=== PATIENT | male | born 1995 | race Caucasian/White ===

== ENCOUNTER 2017-11-22 18:43 | Observation (INO) | payer BC, OTHER ==
[~2017-11-22 18:43] MED LIST: IBUP1TAB7 PO
[2017-11-22 18:44] VITALS: BP 152/71; PULSE 85; RESP 20; TEMP 97.9; O2SAT 98
[2017-11-22 19:52] LABS: AUTOMATED NEUTROPHIL # 10.2 TH/MM3 (1.8-7.7); BASOPHIL % 0.1 % (0.0-2.0); HEMATOCRIT 45.4 % (39.0-51.0); LYMPH % 4.9 % (9.0-44.0); LYMPHOCYTE # 0.6 TH/MM3 (1.0-4.8); MEAN CELL VOLUME 87.9 FL (80.0-100.0); MEAN CORPUSCULAR HEMOGLOBIN 29.1 PG (27.0-34.0); MEAN CORPUSCULAR HGB CONC 33.1 % (32.0-36.0); MEAN PLATELET VOLUME 9.2 FL (7.0-11.0); MONO % 7.2 % (0.0-8.0); MONOCYTE # 0.8 TH/MM3 (0-0.9); NEUT % 87.8 % (16.0-70.0); PLATELET COUNT 254 TH/MM3 (150-450); RED BLOOD COUNT 5.16 MIL/MM3 (4.50-5.90); RED CELL DISTRIBUTION WIDTH 12.6 % (11.6-17.2); WHITE BLOOD COUNT 11.6 TH/MM3 (4.0-11.0)
[2017-11-22 19:54] LABS: BLOOD, URINE NEG (NEG); GLUCOSE,URINE NEG (NEG); KETONE, URINE 150 mg/dL (NEG); MUCUS URINE MOD /lpf (OCC); NITRITE,URINE NEG (NEG); SQUAMOUS EPITHELIAL CELL URINE <1 /hpf (0-5); URINE COLOR YELLOW (YELLW/STRAW); URINE LEUKOCYTE ESTERASE NEG (NEG)
[2017-11-22 19:55] LABS: BILIRUBIN, URINE NEG (NEG)
[2017-11-22 20:15] LABS: ALBUMIN 4.8 GM/DL (3.4-5.0); AST (GOT) 27 U/L (15-37); BICARBONATE 21.6 MEQ/L (21.0-32.0); BLOOD UREA NITROGEN 16 MG/DL (7-18); CALCIUM 9.6 MG/DL (8.5-10.1); CHLORIDE 101 MEQ/L (98-107); CREATININE 0.79 MG/DL (0.60-1.30); GLUCOSE,RANDOM 106 MG/DL (74-106); SODIUM (NA) 135 MEQ/L (136-145)
[2017-11-22 20:16] LABS: ALT (GPT) 26 U/L (12-78)
[2017-11-22 20:18] LABS: ALKALINE PHOSPHATASE 67 U/L (45-117); LIPASE 4169 U/L (73-393); TOTAL PROTEIN 8.2 GM/DL (6.4-8.2)
[2017-11-22] MEDS ORDERED: ONDANSETRON HCL 4 MG/2 ML VIAL IV PUSH ONE (20:30)
[2017-11-22] MEDS ORDERED: HYDROmorphone HCL PF 2 MG/ML VIAL IV PUSH ONE (20:30)
[2017-11-22] MEDS ORDERED: SODIUM CHLOR 0.9% 1000 ML INJ 1,000 ML IV ONE ×2 (20:30→21:00)
--- NOTE | 2017-11-22 20:46 | PD ---
HPI . Abdominal pain Chief Complaint: Abdominal Pain Time Seen by Provider: 20:25 Travel History International Travel<30 days: No Contact w/Intl Traveler<30days: No Traveled to known affect area: No History of Present Illness HPI Patient presents with a chief complaint of abdominal pain associated with vomiting. Onset was 24 hours ago. He reports at least 20 episodes of emesis. He has had a couple loose stools. He reports associated decreased urinary output. The pain is constant and is rated 7/10. He has noted no modifying factors. PFSH Past Medical History Hx Anticoagulant Therapy: No Anxiety: Yes Depression: Yes Cancer: No Cardiovascular Problems: No Chemotherapy: No Cerebrovascular Accident: No Diabetes: No Diminished Hearing: No Endocrine: No Gastrointestinal Disorders: No Genetic Disorder: No Genitourinary: No Headaches: Yes Immune Disorder: No Implanted Vascular Access Dvce: No Musculoskeletal: Yes Neurologic: No Psychiatric: Yes (DEPRESSION / ANXIETY) Reproductive: No Respiratory: No Immunizations Current: Yes Past Surgical History Hysterectomy: No Family History Family Hypercholesterolemia: No Social History Alcohol Use: Yes (OCC) Tobacco Use: No Substance Use: Yes (Marijuanna Daily ?; ETOH 'not often') Allergies-Medications (Allergen,Severity, Reaction): Coded Allergies: No Known Allergies (Unverified Adverse Reaction, Unknown, 11/22/17) Reported Meds & Prescriptions Reported Meds & Active Scripts Active No Active Prescriptions or Reported Medications Review of Systems Except as stated in HPI: all other systems reviewed are Neg General / Constitutional: Positive: Fever, Chills Gastrointestinal: Positive: Nausea, Vomiting, Diarrhea, Abdominal Pain Genitourinary: Positive: Decreased Urinary Output Physical Exam Narrative GENERAL: Awake and alert. He does not look like he feels very well. SKIN: warm/dry. HEAD: Normocephalic. Atraumatic. EYES: Pupils equal and round. No scleral icterus. No injection or drainage. ENT: No nasal bleeding or discharge. Mucous membranes pink and moist. NECK: Trachea midline. Full range of motion without pain.. CARDIOVASCULAR: Regular rate and rhythm. RESPIRATORY: No accessory muscle use. Clear to auscultation. Breath sounds equal bilaterally. GASTROINTESTINAL: Abdomen soft. Tender mainly in the left. No epigastric tenderness.. Bowel sounds present. Nondistended. MUSCULOSKELETAL: No obvious deformities. NEUROLOGICAL: Awake and alert. No obvious cranial nerve deficits. Motor grossly within normal limits. Normal speech. PSYCHIATRIC: Appropriate mood and affect; insight and judgment normal. Data Data Last Documented VS Vital Signs Date Time Temp Pulse Resp B/P (MAP) Pulse Ox O2 Delivery O2 Flow Rate FiO2 11/22/17 22:14 76 18 125/66 (85) 99 Room Air 11/22/17 18:44 97.9 Orders Orders Complete Blood Count With Diff (11/22/17 19:05) Comprehensive Metabolic Panel (11/22/17 19:05) Lipase (11/22/17 19:05) Urinalysis - C+S If Indicated (11/22/17 19:05) Influenzae A/B Antigen (11/22/17 19:06) Ct Abd/Pel W Iv Contrast(Rout) (11/22/17 20:26) Sodium Chlor 0.9% 1000 Ml Inj (Ns 1000 M (11/22/17 20:30) Ondansetron Inj (Zofran Inj) (11/22/17 20:30) Hydromorphone Pf Inj (Dilaudid Pf Inj) (11/22/17 20:30) Sodium Chlor 0.9% 1000 Ml Inj (Ns 1000 M (11/22/17 21:00) Iohexol 350 Inj (Omnipaque 350 Inj) (11/22/17 22:21) Piperacil-Tazo 4.5 Gm Premix (Zosyn 4.5 (11/22/17 23:00) Labs Laboratory Tests Test 11/22/17 19:18 White Blood Count 11.6 TH/MM3 Red Blood Count 5.16 MIL/MM3 Hemoglobin 15.0 GM/DL Hematocrit 45.4 % Mean Corpuscular Volume 87.9 FL Mean Corpuscular Hemoglobin 29.1 PG Mean Corpuscular Hemoglobin Concent 33.1 % Red Cell Distribution Width 12.6 % Platelet Count 254 TH/MM3 Mean Platelet Volume 9.2 FL Neutrophils (%) (Auto) 87.8 % Lymphocytes (%) (Auto) 4.9 % Monocytes (%) (Auto) 7.2 % Eosinophils (%) (Auto) 0.0 % Basophils (%) (Auto) 0.1 % Neutrophils # (Auto) 10.2 TH/MM3 Lymphocytes # (Auto) 0.6 TH/MM3 Monocytes # (Auto) 0.8 TH/MM3 Eosinophils # (Auto) 0.0 TH/MM3 Basophils # (Auto) 0.0 TH/MM3 CBC Comment DIFF FINAL Differential Comment Urine Color YELLOW Urine Turbidity CLEAR Urine pH 6.0 Urine Specific [place] 1.042 Urine Protein 100 mg/dL Urine Glucose (UA) NEG mg/dL Urine Ketones 150 mg/dL Urine Occult Blood NEG Urine Nitrite NEG Urine Bilirubin NEG Urine Urobilinogen 2.0 MG/DL Urine Leukocyte Esterase NEG Urine RBC 1 /hpf Urine WBC 1 /hpf Urine Squamous Epithelial Cells <1 /hpf Urine Mucus MOD /lpf Microscopic Urinalysis Comment CULT NOT INDICATED Blood Urea Nitrogen 16 MG/DL Creatinine 0.79 MG/DL Random Glucose 106 MG/DL Total Protein 8.2 GM/DL Albumin 4.8 GM/DL Calcium Level 9.6 MG/DL Alkaline Phosphatase 67 U/L Aspartate Amino Transf (AST/SGOT) 27 U/L Alanine Aminotransferase (ALT/SGPT) 26 U/L Total Bilirubin 1.0 MG/DL Sodium Level 135 MEQ/L Potassium Level 3.2 MEQ/L Chloride Level 101 MEQ/L Carbon Dioxide Level 21.6 MEQ/L Anion Gap 12 MEQ/L Lipase 4169 U/L [facility] Medical Decision Making Medical Screen Exam Complete: Yes Emergency Medical Condition: Yes Differential Diagnosis Differential diagnosis of abdominal pain includes but is not limited to gastritis, pancreatitis, hepatitis, gastroenteritis, gallbladder disease, constipation, urinary retention, UTI, peptic ulcer disease, diverticulitis or appendicitis Narrative Course Patient presents complaining with left-sided abdominal pain associated with numerous episodes of emesis about 24 hours ago. He'll be treated with IV fluids, IV Dilaudid and IV Zofran. CBC & BMP Diagram 11/22/17 19:18 Total Protein 8.2, Albumin 4.8, Calcium Level 9.6, Alkaline Phosphatase 67, Aspartate Amino Transf (AST/SGOT) 27, Alanine Aminotransferase (ALT/SGPT) 26, Total Bilirubin 1.0 lipase 4169 UA is concentrated. Last Impressions Abdomen/Pelvis CT 11/22/172025 Signed Impressions: Service Date/Time: Wednesday, November 22, 2017 22:13 - CONCLUSION: 1. Significan dilated fluid-filled appendix measuring up to 21 mm with minimal periappendiceal inflammatory change. There is also marked trace free fluid in the pelvis and mesenteric fluid in the left upper quadrant. Differential considerations include appendix mucocele and appendicitis although the former is favored. Carlos Gibbs MD I have ordered a dose of IV Zosyn. The patient looks much better following fluids and pain medication. I have explained the results of the CAT scan to he and his family. Physician Communication Physician Communication Dr. Tsang will admit to his service with planned appendectomy tomorrow Diagnosis Primary Impression: Nausea and vomiting Qualified Codes: R11.2 - Nausea with vomiting, unspecified Additional Impressions: Abdominal pain Qualified Codes: R10.12 - Left upper quadrant pain Appendicitis Qualified Codes: K35.80 - Unspecified acute appendicitis Admitting Information Admitting Physician Requests: Observation Scripts No Active Prescriptions or Reported Meds Condition: Stable Nicolette Murray MD Nov 22, 2017 20:46
[2017-11-22 22:14] VITALS: BP 125/66; PULSE 76; RESP 18; O2SAT 99
[2017-11-22] MEDS ORDERED: IOHEXOL 350 MG/ML 10 ML VIAL (for RAD DIAG) IVCONTRAST ONE (22:21)
--- NOTE | 2017-11-22 22:40 | RADRPT ---
EXAM DATE/TIME: 11/22/2017 22:13 [facility] COMPARISON: No previous studies available for comparison. INDICATIONS : Patient complains of left lower quadrant pain. IV CONTRAST: 90 cc Omnipaque 350 (iohexol) IV ORAL CONTRAST: No oral contrast ingested. RADIATION DOSE: 9.96 CTDIvol (mGy) MEDICAL HISTORY : None SURGICAL HISTORY : None. ENCOUNTER: Initial ACUITY: 1 day PAIN SCALE: 5/10 LOCATION: Left lower quadrant TECHNIQUE: Volumetric scanning of the abdomen and pelvis was performed. Using automated exposure control and ad justment of the mA and/or kV according to patient size, radiation dose was kept as low as reasonably achievable to obtain optimal diagnostic quality images. DICOM format image data is available electro nically for review and comparison. FINDINGS: LOWER LUNGS: The visualized lower lungs are clear. LIVER: Homogeneous density without lesion. There is no dilation of the biliary tree. No calcified gallston es. SPLEEN: Normal size without lesion. PANCREAS: Within normal limits. KIDNEYS: Normal in size and shape. There is no mass, stone or hydronephrosis. ADRENAL GLANDS: Within normal limits. VASCULAR: There is no aortic aneurysm. BOWEL/MESENTERY: Appendix is significantly enlarged measuring up to 2.1 cm with very mild periappendiceal inflammatory change. There is a small amount of free fluid in the abdomen with fluid noted in the pelvis and left upper quadrant are. ABDOMINAL WALL: Within normal limits. RETROPERITONEUM: There is no lymphadenopathy. BLADDER: No wall thickening or mass. REPRODUCTIVE: Within normal limits. INGUINAL: There is no lymphadenopathy or hernia. MUSCULOSKELETAL: Within normal limits for patient age. CONCLUSION: 1. Significan dilated fluid-filled appendix measuring up to 21 mm with minimal periappendiceal inflam matory change. There is also marked trace free fluid in the pelvis and mesenteric fluid in the left u pper quadrant. Differential considerations include appendix mucocele and appendicitis although the fo rmer is favored. Carlos Gibbs MD on November 22, 2017 at 22:31 Board Certified Radiologist. This report was verified electronically.
[2017-11-22] MEDS ORDERED: PIPERACIL-TAZO 4.5 GM PREMIX 100 ML IV ONE (23:00)
[2017-11-23 01:09] VITALS: BP 139/74; PULSE 73; RESP 18; TEMP 99.2; O2SAT 99
--- NOTE | 2017-11-23 01:26 | PD ---
Data Data Last Documented VS Vital Signs Date Time Temp Pulse Resp B/P (MAP) Pulse Ox O2 Delivery O2 Flow Rate FiO2 11/22/17 22:14 76 18 125/66 (85) 99 Room Air 11/22/17 18:44 97.9 Orders Orders Complete Blood Count With Diff (11/22/17 19:05) Comprehensive Metabolic Panel (11/22/17 19:05) Lipase (11/22/17 19:05) Urinalysis - C+S If Indicated (11/22/17 19:05) Influenzae A/B Antigen (11/22/17 19:06) Ct Abd/Pel W Iv Contrast(Rout) (11/22/17 20:26) Sodium Chlor 0.9% 1000 Ml Inj (Ns 1000 M (11/22/17 20:30) Ondansetron Inj (Zofran Inj) (11/22/17 20:30) Hydromorphone Pf Inj (Dilaudid Pf Inj) (11/22/17 20:30) Sodium Chlor 0.9% 1000 Ml Inj (Ns 1000 M (11/22/17 21:00) Iohexol 350 Inj (Omnipaque 350 Inj) (11/22/17 22:21) Piperacil-Tazo 4.5 Gm Premix (Zosyn 4.5 (11/22/17 23:00) Admit Order (Ed Use Only) (11/22/17 23:02) Labs Laboratory Tests Test 11/22/17 19:18 White Blood Count 11.6 TH/MM3 Red Blood Count 5.16 MIL/MM3 Hemoglobin 15.0 GM/DL Hematocrit 45.4 % Mean Corpuscular Volume 87.9 FL Mean Corpuscular Hemoglobin 29.1 PG Mean Corpuscular Hemoglobin Concent 33.1 % Red Cell Distribution Width 12.6 % Platelet Count 254 TH/MM3 Mean Platelet Volume 9.2 FL Neutrophils (%) (Auto) 87.8 % Lymphocytes (%) (Auto) 4.9 % Monocytes (%) (Auto) 7.2 % Eosinophils (%) (Auto) 0.0 % Basophils (%) (Auto) 0.1 % Neutrophils # (Auto) 10.2 TH/MM3 Lymphocytes # (Auto) 0.6 TH/MM3 Monocytes # (Auto) 0.8 TH/MM3 Eosinophils # (Auto) 0.0 TH/MM3 Basophils # (Auto) 0.0 TH/MM3 CBC Comment DIFF FINAL Differential Comment Urine Color YELLOW Urine Turbidity CLEAR Urine pH 6.0 Urine Specific [place] 1.042 Urine Protein 100 mg/dL Urine Glucose (UA) NEG mg/dL Urine Ketones 150 mg/dL Urine Occult Blood NEG Urine Nitrite NEG Urine Bilirubin NEG Urine Urobilinogen 2.0 MG/DL Urine Leukocyte Esterase NEG Urine RBC 1 /hpf Urine WBC 1 /hpf Urine Squamous Epithelial Cells <1 /hpf Urine Mucus MOD /lpf Microscopic Urinalysis Comment CULT NOT INDICATED Blood Urea Nitrogen 16 MG/DL Creatinine 0.79 MG/DL Random Glucose 106 MG/DL Total Protein 8.2 GM/DL Albumin 4.8 GM/DL Calcium Level 9.6 MG/DL Alkaline Phosphatase 67 U/L Aspartate Amino Transf (AST/SGOT) 27 U/L Alanine Aminotransferase (ALT/SGPT) 26 U/L Total Bilirubin 1.0 MG/DL Sodium Level 135 MEQ/L Potassium Level 3.2 MEQ/L Chloride Level 101 MEQ/L Carbon Dioxide Level 21.6 MEQ/L Anion Gap 12 MEQ/L Lipase 4169 U/L MDM Supervised Visit with BISI: No Narrative Course Patient admitted to CDU. Unable to get orders for pain medication or fluids from attending physician. Placed orders for morphine, Zofran, IV fluids. Diagnosis Primary Impression: Nausea and vomiting Qualified Codes: R11.2 - Nausea with vomiting, unspecified Additional Impressions: Appendicitis Qualified Codes: K35.80 - Unspecified acute appendicitis Abdominal pain Qualified Codes: R10.12 - Left upper quadrant pain Scripts No Active Prescriptions or Reported Meds Condition: Stable Russell Faye MD Nov 23, 2017 01:26
[2017-11-23] MEDS ORDERED: ONDANSETRON HCL 4 MG/2 ML VIAL IV PRN (01:30)
[2017-11-23] MEDS ORDERED: SODIUM CHLOR 0.9% 1000 ML INJ 1,000 ML IV SCH (01:30)
[2017-11-23] MEDS ORDERED: MORPHINE SULFATE 2 MG/ML INJ IV PUSH PRN ×2 (01:30→08:00)
[2017-11-23] MEDS ORDERED: BUPIVACAINE/EPINEPHRINE 0.25% PF 30 ML VIAL ONE (03:04)
[2017-11-23] MEDS ORDERED: ACETAMINOPHEN 1000 MG/100 ML 100 ML IV ONE (06:18)
[2017-11-23] MEDS ORDERED: SUGAMMADEX SODIUM 200 MG/2 ML VIAL IV PUSH ONE (06:27)
--- NOTE | 2017-11-23 06:35 | MH ---
cc: ILIANA CALLAHAN M.D. DATE OF ADMISSION: 11/22/2017 REASON FOR ADMISSION Abdominal pain. HISTORY OF PRESENT ILLNESS The patient is a 22-year-old male with a 24-hour history of diffuse abdominal pain. He has had multiple episodes of emesis and some loose bowels. He reports that his pain is primarily on the left side of his abdomen but is also located on the right. PAST MEDICAL HISTORY History of headaches. Depression and anxiety. SOCIAL HISTORY Significant for occasional alcohol use and daily marijuana use. He does not smoke tobacco. ALLERGIES He has no known allergies. MEDICATIONS He is not using any prescription medications. REVIEW OF SYSTEMS Significant for fever and chills, nausea, vomiting, diarrhea and abdominal pain. PHYSICAL EXAMINATION GENERAL: A male who is in no acute distress but just received pain medication. VITALS: BP 139/74, pulse 73, respirations 18, temperature 99.2. HEENT: Sclerae anicteric. Pupils reactive. CHEST: Clear to auscultation. CARDIAC EXAM: Regular rate and rhythm. ABDOMEN: Soft with diffuse tenderness with some guarding on both sides of the abdomen, right side slightly greater than left. There is no Rovsing's sign. EXTREMITIES: Pulses are intact. NEUROLOGIC: Exam is nonfocal. LABORATORY FINDINGS WBCs 11.6, platelets 254,000, hemoglobin 15.0. Chemistries are significant for a potassium of 3.2, BUN and creatinine are normal at 16 and 0.79 and lipase is elevated at 4169. IMAGING STUDIES Imaging demonstrates no gallstones or dilatation of the biliary tree. Pancreas appears within normal limits. The appendix is significantly enlarged measuring up to 2.1 cm with some very mild periappendiceal inflammatory change. There is some free fluid in the abdomen with fluid in the pelvis in the left upper quadrant. Mucocele versus appendicitis is in the differential. ASSESSMENT 1. Acute abdominal pain with elevated lipase with possible pancreatitis, although CT imaging does not favor this. 2. Mucocele versus appendicitis. I have discussed with the patient exploration and appendectomy versus observation. The patient is in fairly severe pain and feels that it is reasonable to proceed with appendectomy. I discussed risks of the procedure with the patient in the presence of the nurse including but not limited to bleeding, infection, need for drainage, need for reoperation, and adhesion formation. I have discussed with the patient that there is an abnormality on the CT scan and this may help solve the problem. I also indicated to him that he may require stay for more than a day in the hospital if he continues to have abdominal pain. The patient vocalizes understanding of this as well as the benefits, consequences, alternatives and convalescence. We will proceed with surgery this morning. MD ZULEMA Kim/CECELIA /5:48 AM /6:11 AM MTDRonaldo
[2017-11-23] MEDS ORDERED: DO NOT ADM ANY ANTICOAGULANT DRUGS PRN (06:52)
--- NOTE | 2017-11-23 07:38 | HHI.PR ---
cc: Mike Tsang MD Immediate Post Op Note Procedure Date: Nov 23, 2017 Pre Op Diagnosis: Acute appendicitis Post Op Diagnosis: Same Surgeon: Mike Tsang Manager Application(s): Gabriela Washington CFA Procedure: Laparoscopic appendectomy Findings: Appendix not acutely inflamed Complications: None Specimen(s) removed: Appendix to pathology Estimated blood loss: 5 ml Anesthesia: General Drains: None IVF (900 ml) Patient to: PACU Patient Condition: Good Date/Time of Procedure: SEE SURGICAL CARE RECORD Mike Tsang MD Nov 23, 2017 07:38
[2017-11-23] MEDS ORDERED: NALOXONE HCL 0.4 MG/ML AMP IV PUSH PRN (07:45)
[2017-11-23] MEDS ORDERED: Post-op Orders (for Pharmacy) XX ONE (07:45)
[2017-11-23] MEDS ORDERED: ACETAMINOPHEN/HYDROcodone 325 MG/5 MG TAB PO PRN ×2 (08:00)
[2017-11-23] MEDS ORDERED: ONDANSETRON HCL 4 MG/2 ML VIAL IV PUSH PRN (08:00)
[2017-11-23] MEDS: LACTATED RINGER'S 1000 ML INJ 1,000 ML IV SCH ×2 (08:00→17:45)
--- NOTE | 2017-11-23 08:43 | MP ---
cc: ILIANA CALLAHAN M.D. DATE OF SURGERY 11/23/2018 PROCEDURE Laparoscopic appendectomy. PREOPERATIVE DIAGNOSIS Acute appendicitis. POSTOPERATIVE DIAGNOSIS Subacute appendicitis. ANESTHESIA General endotracheal. SURGEON Sharan. ESTIMATED BLOOD LOSS 5 mL. FLUIDS 900 mL crystalloid. COMPLICATIONS None. DRAINS None. SPECIMEN Appendix to pathology. FINDINGS Bloody peritoneal fluid noted. Appendix not acutely inflamed. No other pathology noted except for a small amount of saponification near the lesser sac near the mesenteric root. PROCEDURE IN DETAIL The patient was taken to the operating room and placed on the operating table in the supine position. After an adequate level of general endotracheal anesthesia was achieved the abdomen was prepped and draped in the usual fashion. A timeout was taken confirming the correct patient, site and procedure to be performed. Skin and subcutaneous tissue was infiltrated with local anesthetic and an incision made in the umbilicus and carried through the fascia sharply. A 12 mm balloon trocar was then inserted and the balloon inflated. The abdomen was insufflated. The patient was placed in Trendelenburg position. Two 5 mm trocars were placed with the first in the right lower quadrant and the second in the suprapubic region. Both entered the abdominal cavity under direct vision uneventfully. The cecum was manipulated and the appendix came into view. There did not appear to be a mucocele and the appendix did not appear to be grossly acutely inflamed. The mesoappendix was divided with the Harmonic scalpel and dissection carried back to the base of the appendix. A 0 PDS Endoloop was slipped around the appendix and cinched down at the base. The appendix was divided 1 cm distal to this and placed into an EndoCatch device. The appendix was removed via the umbilical port and passed off the table. The appendiceal stump was reexamined and was seen to be hemostatic. The mesoappendix was hemostatic as well. The pelvis was examined and non-bloody fluid was noted down in the pelvis. This was irrigated and aspirated. A small amount of bloody fluid was noted up in the left upper quadrant which had been seen on the CT scan. This was irrigated and aspirated as well. Fluid was aspirated from around the liver as well. Careful examination of the abdomen did not reveal any other pathology. The small bowel appeared normal and the colon, wile dilated in the transverse colon, did not appear to be abnormal. At this point insufflation was discontinued and the 5 mm trocars removed. The laparoscope and umbilical port were removed. The fascia was closed in the umbilicus with 0 Vicryl suture in a simple interrupted and [id number] fashion. The remaining local anesthetic was injected into the trocar sites. The skin was closed at each of the trocar sites with 4-0 Vicryl in an interrupted buried fashion. The trocar sites were dressed with Steri-Strips. The patient was extubated and taken back to the recovery room in stable condition. Sponge and needle counts were reported to be correct. MD ZULEMA Kim/NAVEED /7:29 AM /7:47 AM
[2017-11-23] MEDS ORDERED: POTASSIUM CHLORIDE 10 MEQ CONTROLLED RELEASE TAB PO ONE (09:00)
[2017-11-23] MEDS: traMADol HCL 50 MG TAB PO PRN ×2 (09:17→17:41)
[2017-11-23 11:00] VITALS: BP 114/61; PULSE 65; RESP 16; TEMP 96.7; O2SAT 98
[2017-11-23] MEDS ORDERED: ONDANSETRON HCL 4 MG/2 ML VIAL IV ONE (12:00)
[2017-11-23] MEDS ORDERED: LIDOCAINE HCL 1% PF 5 ML SYRINGE OTHER ONE (12:00)
[2017-11-23] MEDS ORDERED: ROCURONIUM INJ 50 MG/5 ML SYRINGE IV PUSH ONE (12:00)
[2017-11-23] MEDS ORDERED: PROPOFOL 200 MG/20 ML AMP IV ONE (12:00)
[2017-11-23] MEDS ORDERED: KETOROLAC TROMETHAMINE 30 MG/ML (IVP) VIAL IV PUSH ONE (12:00)
[2017-11-23] MEDS ORDERED: DEXAMETHASONE SOD PHOS 4 MG/ML VIAL IV ONE (12:00)
[2017-11-23] MEDS: diphenhydrAMINE HCL 25 MG CAP PO PRN ×2 (14:12→23:15)
[2017-11-23] MEDS: KETOROLAC TROMETHAMINE 30 MG/ML (IVP) VIAL IVP PRN ×2 (15:37→23:19)
[2017-11-23 16:00] VITALS: BP 104/54; PULSE 58; RESP 16; TEMP 97.4; O2SAT 98
[2017-11-23 17:24] LABS: BILIRUBIN, URINE NEG (NEG); BLOOD, URINE NEG (NEG); GLUCOSE,URINE NEG (NEG); KETONE, URINE NEG (NEG); MUCUS URINE FEW /lpf (OCC); NITRITE,URINE NEG (NEG); PH, URINE 5.5 (5.0-8.5); URINE COLOR YELLOW (YELLW/STRAW); URINE LEUKOCYTE ESTERASE NEG (NEG)
[2017-11-23 20:00] VITALS: BP 130/59; PULSE 58; RESP 16; TEMP 96.4; O2SAT 100
[2017-11-24] VITALS: BP 127/62; PULSE 68; RESP 16; TEMP 99.6; O2SAT 100
[2017-11-24] MEDS: traMADol HCL 50 MG TAB PO PRN ×3 (01:47→14:33)
[2017-11-24] MEDS: LACTATED RINGER'S 1000 ML INJ 1,000 ML IV SCH ×2 (03:45→13:45)
[2017-11-24 04:00] VITALS: BP 100/50; PULSE 73; RESP 18; TEMP 96; O2SAT 100
[2017-11-24 05:28] LABS: BASOPHIL % 0.1 % (0.0-2.0); EOSINOPHIL % 0.4 % (0.0-4.0); HEMATOCRIT 35.2 % (39.0-51.0); HEMOGLOBIN 11.7 GM/DL (13.0-17.0); LYMPH % 11.9 % (9.0-44.0); LYMPHOCYTE # 1.3 TH/MM3 (1.0-4.8); MEAN CELL VOLUME 88.6 FL (80.0-100.0); MEAN CORPUSCULAR HEMOGLOBIN 29.4 PG (27.0-34.0); MEAN CORPUSCULAR HGB CONC 33.2 % (32.0-36.0); MEAN PLATELET VOLUME 9.1 FL (7.0-11.0); MONO % 12.7 % (0.0-8.0); MONOCYTE # 1.3 TH/MM3 (0-0.9); NEUT % 74.9 % (16.0-70.0); PLATELET COUNT 174 TH/MM3 (150-450); RED BLOOD COUNT 3.97 MIL/MM3 (4.50-5.90); RED CELL DISTRIBUTION WIDTH 12.7 % (11.6-17.2); WHITE BLOOD COUNT 10.6 TH/MM3 (4.0-11.0)
[2017-11-24 05:48] LABS: ALBUMIN 3.2 GM/DL (3.4-5.0); ALKALINE PHOSPHATASE 46 U/L (45-117); ALT (GPT) 18 U/L (12-78); AST (GOT) 13 U/L (15-37); BICARBONATE 25.7 MEQ/L (21.0-32.0); BLOOD UREA NITROGEN 8 MG/DL (7-18); CALCIUM 8.3 MG/DL (8.5-10.1); CHLORIDE 107 MEQ/L (98-107); CREATININE 0.55 MG/DL (0.60-1.30); GLOMERULAR FILTRATION RATE 186 ML/MIN (>89); GLUCOSE,RANDOM 86 MG/DL (74-106); LIPASE 1194 U/L (73-393); SODIUM (NA) 140 MEQ/L (136-145); TOTAL BILIRUBIN ADULT 0.4 MG/DL (0.2-1.0)
[2017-11-24 08:00] VITALS: BP 110/53; PULSE 75; RESP 16; TEMP 96.4; O2SAT 100
[2017-11-24] MEDS: diphenhydrAMINE HCL 25 MG CAP PO PRN ×2 (10:22→14:32)
[2017-11-24] MEDS: KETOROLAC TROMETHAMINE 30 MG/ML (IVP) VIAL IVP PRN ×2 (10:23→14:32)
[2017-11-24 12:00] VITALS: BP 128/65; PULSE 75; RESP 16; TEMP 97.6; O2SAT 98
[2017-11-24 16:00] VITALS: BP 143/59; PULSE 72; RESP 16; TEMP 96.2; O2SAT 98
[2017-11-24] MEDS ORDERED: TRAM50TA PO (16:57)
[2017-11-24 17:45] LABS: LIPASE 570 U/L (73-393)
[2017-11-24 17:47] LABS: AMYLASE 185 U/L (25-115)
== END 2017-11-24 19:19 | disposition home or self-care (01) ==
LOC: NEPD 18:43 → NEDA 23:03 → NEPHCDU 11-23 00:25 → N06B 11-23 08:41 → N06A 11-24 12:08
PROVIDERS: ADMIT Surgery Trauma Surgery; ATTEND Surgery Trauma Surgery
DX: K35.80 Unspecified acute appendicitis (principal); R74.8 Abnormal levels of other serum enzymes; F12.90 Cannabis use, unspecified, uncomplicated
CPT/HCPCS: 00840; 44970; 74177; 80053; 81001; 82150; 83690; 84132; 84478; 85025; 87804; 88304; 94150; 96361; 96365; 96375; 96376; 99285; G0378; J0131; J1100; J1170; J1885; J2270; J2405; J2543; J7030; J7120; Q9967